=== PATIENT | female | born 1950 | race Caucasian/White ===

== ENCOUNTER 2016-11-22 19:48 | Emergency (ER) | payer OTHER, MEDICARE ==
[~2016-11-22] VITALS: Ht 182.9 cm; Wt 160.0 kg
[~2016-11-22 19:48] MED LIST: DICL1GEL28 TD; GABA-113 PO; HMLI7525 SC; HYDR-3419 PO; LEVO50TA PO; LIDOCAINE PATCH EXT; LISI-461 PO; MVC20 PO
[2016-11-22 19:55] VITALS: TEMP 36.6; Ht 182.9 cm; Wt 160.0 kg
[2016-11-22] MEDS ORDERED: CPR500HP PO (20:35)
[2016-11-22] MEDS ORDERED: LRS10 PO (20:37)
[2016-11-22] MEDS ORDERED: NAPR1TAB9 PO (20:37)
--- NOTE | 2016-11-22 20:42 | EMERGENCY ROOM VISIT NOTE ---
History Report prepared by David: Kari Baldwin Under the Supervision of: Dr. Neymar Ta M.D. First contact with patient: 20:12 Chief Complaint: SHOULDER PAIN Stated Complaint: PAIN L SHOULDER,SWOLLEN JOINTS History of Present Illness The patient is a 66 year old female who presents to the Emergency Room with complaints of intermittent left shoulder pain that has been worsening over the past 2 days. She was at her PCP's office last week for bilateral lower extremity swelling and redness. She was diagnosed with cellulitis and started on Cipro. She states that these symptoms have improved since taking the antibiotic. At that time she mentioned some left elbow pain to her PCP. Her PCP thought that it might be bursitis. The patient states that over the past couple of days her pain has worsened. It is in her left shoulder and radiating down into her left wrist. She reports that her arm gets hot and numb as well. She rates her pain as an 8/10 at its worst, but is not currently experiencing any pain. She has been taking Vicodin and Aleve for her pain. The patient denies any modifying factors. She denies any pain with movement. She denies rash and any significant cardiac history. Source of History: patient Onset: 2 days ago Position: shoulder (left) Symptom Intensity: 8/10 Timing: intermittent, worsening Modifying Factors (Worsening): other (none) Modifying Factors (Relieving): ibuprofen (Aleve), narcotics (Vicodin) Associated Symptoms: No rash Review of Systems See HPI for pertinent positives & negatives. A total of 10 systems reviewed and were otherwise negative. Past Medical & Surgical Medical Problems: (1) Back pain (2) Benign hypertension (3) Depression (4) Diabetes mellitus (5) Hyperlipidemia (6) Hypothyroidism (7) Morbid obesity Family History Heart disease Social History Smoking Status: Never Smoker Alcohol Use: none Marital Status: single Housing Status: lives with family Occupation Status: disabled Current/Historical Medications Scheduled Ciprofloxacin (Ciprofloxacin HCl), 1 TAB PO BID Gabapentin (Neurontin), 1,200 MG PO HS Gabapentin (Neurontin), 600 MG PO AFTERNOON Insulin Lispro 75/25 (Humalog Mix 75/25), 62 UNITS SC QAM Insulin Lispro 75/25 (Humalog Mix 75/25), 44 UNITS SC QPM Levothyroxine Sodium (Synthroid), 50 MCG PO QAM Lisinopril (Zestril), 10 MG PO QAM Lovastatin (Lovastatin), 20 MG PO QAM Scheduled PRN Baclofen (Baclofen), 10 MG PO TID PRN for Muscle Spasms Diclofenac Sod (Voltaren 1% Top Gel), 1 APPLN TD BID PRN for Pain Hydrocodon/Acetaminophen 5MG/300MG (Vicodin (5MG/300MG)), 1 TAB PO Q6 PRN Naproxen (Aleve), 220 MG PO DAILY PRN for PRN [Lidocaine Patch], 1 DOSE EXT DIRECTED PRN for Pain Allergies Coded Allergies: Cefuroxime (Verified Allergy, Mild, RASH, 09/26/16) Moxifloxacin (Verified Allergy, Mild, RASH, 09/26/16) Quinolones (Verified Allergy, Unknown, RASH, 09/26/16) Physical Exam Vital Signs Date Time Temp Pulse Resp B/P Pulse Ox O2 Delivery O2 Flow Rate FiO2 11/22/16 23:19 68 20 151/65 96 11/22/16 19:55 36.6 80 20 141/69 93 Room Air Physical Exam GENERAL: Patient is an obese 66 year old female. HEAD: Normocephalic atraumatic EYES: Ocular movements intact pupils equal and react to light OROPHARYNX mucous membranes are moist no exudates present no erythema or edema present NECK: Supple no nuchal rigidity CHEST: Good equal expansion LUNGS: Clear and equal to auscultation CARDIAC: Normal S1 and S2 ABDOMEN: Soft nontender no guarding BACK: No CVA tenderness EXTREMITIES: No pain upon palpation normal muscle strength in all groups no clubbing cyanosis or edema. Neurovascularly intact in left wrist, good ROM of left shoulder left elbow and left wrist. NEURO: Patient is following commands is answering questions appropriately. Alert and oriented x3 Cranial Nerves 2-12 grossly intact Medical Decision & Procedures ER Provider Diagnostic Interpretation: Radiology results as stated below per my review and radiologist interpretation: CHEST ONE VIEW PORTABLE CLINICAL HISTORY: Atypical chest pain COMPARISON STUDY: 02/16/2013 FINDINGS: The study is limited from a technical standpoint due to the patient's large body habitus. The heart is the upper limits of normal in size. There are equivocal perihilar interstitial opacities within the left lung. There is no significant pleural fluid.[ IMPRESSION: Technically limited study. Equivocal left perihilar interstitial opacities. A PA and lateral study is recommended in follow-up. Electronically signed by: Sylvester Glover M.D. 11/22/2016 10:14 PM Dictated Date/Time: 11/22/2016 10:13 PM ULTRASOUND VENOUS DOPPLER ULTRASOUND OF THE LEFT UPPER EXTREMITY CLINICAL HISTORY: Left arm pain COMPARISON STUDY: No previous studies for comparison. FINDINGS: No intraluminal thrombus was visualized. The internal jugular, subclavian, axillary, cephalic, brachial, basilic, radial, and ulnar veins were patent. IMPRESSION: No evidence of left upper extremity DVT. Electronically signed by: Sylvester Glover M.D. 11/22/2016 9:32 PM Dictated Date/Time: 11/22/2016 9:32 PM LEFT SHOULDER MIN 2 VIEWS ROUTINE CLINICAL HISTORY: Left shoulder pain COMPARISON: None. DISCUSSION: No acute fractures or subluxations are visualized. There are degenerative changes present within the left shoulder. There are equivocal left lung interstitial opacities. IMPRESSION: 1. No fractures or dislocations identified 2. Degenerative changes 3. Equivocal left perihilar interstitial opacities Electronically signed by: Sylvester Glover M.D. 11/22/2016 10:16 PM Dictated Date/Time: 11/22/2016 10:14 PM LEFT ELBOW MIN 3 VIEWS ROUTINE CLINICAL HISTORY: Left elbow pain COMPARISON: None. DISCUSSION: The lateral view is limited from a positioning standpoint. No fractures or dislocations are visualized. The fat pads are not displaced. IMPRESSION: No fractures or dislocations identified. No destructive lesions are evident. Electronically signed by: Syvlester Glover M.D. 11/22/2016 10:17 PM Dictated Date/Time: 11/22/2016 10:16 PM Laboratory Results 11/22/16 20:30 Red Blood Count 4.72, Mean Corpuscular Volume 87.7, Mean Corpuscular Hemoglobin 30.5, Mean Corpuscular Hemoglobin Concent 34.8, Mean Platelet Volume 11.2, Neutrophils (%) (Auto) 62.0, Lymphocytes (%) (Auto) 26.6, Monocytes (%) (Auto) 8.2, Eosinophils (%) (Auto) 2.5, Basophils (%) (Auto) 0.5, Neutrophils # (Auto) 5.13, Lymphocytes # (Auto) 2.20, Monocytes # (Auto) 0.68, Eosinophils # (Auto) 0.21, Basophils # (Auto) 0.04 11/22/16 20:30 Test 11/22/16 20:30 White Blood Count 8.28 K/uL (4.8-10.8) Red Blood Count 4.72 M/uL (4.2-5.4) Hemoglobin 14.4 g/dL (12.0-16.0) Hematocrit 41.4 % (37-47) Mean Corpuscular Volume 87.7 fL (80-100) Mean Corpuscular Hemoglobin 30.5 pg (25-34) Mean Corpuscular Hemoglobin Concent 34.8 g/dl (32-36) Platelet Count 244 K/uL (130-400) Mean Platelet Volume 11.2 fL (7.4-10.4) Neutrophils (%) (Auto) 62.0 % Lymphocytes (%) (Auto) 26.6 % Monocytes (%) (Auto) 8.2 % Eosinophils (%) (Auto) 2.5 % Basophils (%) (Auto) 0.5 % Neutrophils # (Auto) 5.13 K/uL (1.4-6.5) Lymphocytes # (Auto) 2.20 K/uL (1.2-3.4) Monocytes # (Auto) 0.68 K/uL (0.11-0.59) Eosinophils # (Auto) 0.21 K/uL (0-0.5) Basophils # (Auto) 0.04 K/uL (0-0.2) RDW Standard Deviation 41.5 fL (36.4-46.3) RDW Coefficient of Variation 12.9 % (11.5-14.5) Immature Granulocyte % (Auto) 0.2 % Immature Granulocyte # (Auto) 0.02 K/uL (0.00-0.02) Anion Gap 11.0 mmol/L (3-11) Est Creatinine Clear Calc Drug Dose 95.5 ml/min Estimated GFR () 70.4 Estimated GFR (Non- 60.8 BUN/Creatinine Ratio 20.9 (10-20) Calcium Level 9.3 mg/dl (8.5-10.1) Total Bilirubin 0.3 mg/dl (0.2-1) Direct Bilirubin 0.1 mg/dl (0-0.2) Aspartate Amino Transf (AST/SGOT) 14 U/L (15-37) Alanine Aminotransferase (ALT/SGPT) 23 U/L (12-78) Alkaline Phosphatase 85 U/L (45-117) Total Creatine Kinase 66 U/L (26-192) Creatine Kinase MB 1.0 ng/ml (0.5-3.6) Creatine Kinase MB Ratio 1.5 (0-3.0) Troponin I < 0.015 ng/ml (0-0.045) Total Protein 6.9 gm/dl (6.4-8.2) Albumin 3.6 gm/dl (3.4-5.0) Lipase 105 U/L (73-393) Labs reviewed by ED physician. ECG Indication: back/shoulder pain Rate (beats per minute): 69 Rhythm: normal sinus Findings: no acute ischemic change, no ectopy ED Course 2011: Past medical records reviewed. The patient was evaluated in room B7. A complete history and physical examination was performed. 2249: I reassessed the patient at this time. She is feeling better and resting comfortably. I discussed the results and treatment plan with the patient. I answered all pertaining questions that she had. She expressed understanding and verbalized agreement. The patient will be discharged home. Medical Decision Differential diagnosis: Etiologies such as fracture, dislocation, neurovascular compromise, compartment syndrome, soft tissue injury, as well as others were entertained. This is a 66-year-old female who presents emergency department complaining of 3 days of left shoulder pain. Patient reports that she is not currently having any pain. As the pain has been ongoing for the past 3 days I would expect her to have an elevated troponin if this were a cardiac ischemia. As such she does not. In addition the patient also has a normal x-ray of her chest as well as shoulder. Ultrasound does not show any evidence of a blood clot. The patient refused pain medication in the emergency department. She is also complaining of leg swelling that started after the patient was placed on an antibiotic for cellulitis. I believe the patient can be placed in a compression stockings for her leg and have follow-up with her primary care physician. Patient was in agreement with treatment plan. Impression Primary Impression: Shoulder pain, left Scribe Attestation The scribe's documentation has been prepared under my direction and personally reviewed by me in its entirety. I confirm that the note above accurately reflects all work, treatment, procedures, and medical decision making performed by me. Departure Information Dispostion Home / Self-Care Referrals Iesha Tran (PCP) Abdirizak Handley, DO Forms HOME CARE DOCUMENTATION FORM, IMPORTANT VISIT INFORMATION Patient Instructions A Signature Page, ED Shoulder Pain [facility], My [facility] Additional Instructions You have been examined and treated today on an emergency basis only. This is not a substitute for, or an effort to provide, complete comprehensive medical care. It is impossible to recognize and treat all injuries or illnesses in a single emergency department visit. It is therefore important that you follow up closely with DR Tran. Call as soon as possible for an appointment. Thank you for your time and consideration. I look forward to speaking with you again soon. Please don't hesitate to call us if you have any questions.
[2016-11-22 20:50] LABS: BASO % 0.5 %; BASO ABS # 0.04 K/uL (0-0.2); COMPLETE YES; EOS % 2.5 %; HEMATOCRIT 41.4 % (37-47); IG% 0.2 %; LYMPH % 26.6 %; MEAN CELL VOLUME 87.7 fL (80-100); MEAN CORPUSCULAR HEMOGLOBIN 30.5 pg (25-34); MEAN CORPUSCULAR HGB CONC 34.8 g/dl (32-36); MEAN PLATELET VOLUME 11.2 fL (7.4-10.4); MONO % 8.2 %; PLATELET COUNT 244 K/uL (130-400); RED BLOOD COUNT 4.72 M/uL (4.2-5.4); WHITE BLOOD COUNT 8.28 K/uL (4.8-10.8)
[2016-11-22 21:09] LABS: ALT/SGPT 23 U/L (12-78); BLOOD UREA NITROGEN 20 mg/dl (7-18); BUN/CREATININE RATIO 20.9 (10-20); CALCIUM 9.3 mg/dl (8.5-10.1); CARBON DIOXIDE 25 mmol/L (21-32); CHLORIDE 107 mmol/L (98-107); CREATININE 0.96 mg/dl (0.60-1.20); GLUCOSE 175 mg/dl (70-99); POTASSIUM 4.4 mmol/L (3.5-5.1); SODIUM 143 mmol/L (136-145)
[2016-11-22 21:14] LABS: ALKALINE PHOSPHATASE 85 U/L (45-117); AST/SGOT 14 U/L (15-37); CKMB/CK RATIO 1.5 (0-3.0)
--- NOTE | 2016-11-22 21:34 | DIAGNOSTIC IMAGING REPORT ---
ULTRASOUND VENOUS DOPPLER ULTRASOUND OF THE LEFT UPPER EXTREMITY CLINICAL HISTORY: Left arm pain COMPARISON STUDY: No previous studies for comparison. FINDINGS: No intraluminal thrombus was visualized. The internal jugular, subclavian, axillary, cephalic, brachial, basilic, radial, and ulnar veins were patent. IMPRESSION: No evidence of left upper extremity DVT. Electronically signed by: Sylvester Glover M.D. 11/22/2016 9:32 PM Dictated Date/Time: 11/22/2016 9:32 PM
--- NOTE | 2016-11-22 22:16 | DIAGNOSTIC IMAGING REPORT ---
CHEST ONE VIEW PORTABLE CLINICAL HISTORY: Atypical chest pain COMPARISON STUDY: 02/16/2013 FINDINGS: The study is limited from a technical standpoint due to the patient's large body habitus. The heart is the upper limits of normal in size. There are equivocal perihilar interstitial opacities within the left lung. There is no significant pleural fluid.[ IMPRESSION: Technically limited study. Equivocal left perihilar interstitial opacities. A PA and lateral study is recommended in follow-up. Electronically signed by: Sylvester Glover M.D. 11/22/2016 10:14 PM Dictated Date/Time: 11/22/2016 10:13 PM
--- NOTE | 2016-11-22 22:18 | DIAGNOSTIC IMAGING REPORT ---
LEFT SHOULDER MIN 2 VIEWS ROUTINE CLINICAL HISTORY: Left shoulder pain COMPARISON: None. DISCUSSION: No acute fractures or subluxations are visualized. There are degenerative changes present within the left shoulder. There are equivocal left lung interstitial opacities. IMPRESSION: 1. No fractures or dislocations identified 2. Degenerative changes 3. Equivocal left perihilar interstitial opacities Electronically signed by: Sylvester Glover M.D. 11/22/2016 10:16 PM Dictated Date/Time: 11/22/2016 10:14 PM
--- NOTE | 2016-11-22 22:19 | DIAGNOSTIC IMAGING REPORT ---
LEFT ELBOW MIN 3 VIEWS ROUTINE CLINICAL HISTORY: Left elbow pain COMPARISON: None. DISCUSSION: The lateral view is limited from a positioning standpoint. No fractures or dislocations are visualized. The fat pads are not displaced. IMPRESSION: No fractures or dislocations identified. No destructive lesions are evident. Electronically signed by: Sylvester Glover M.D. 11/22/2016 10:17 PM Dictated Date/Time: 11/22/2016 10:16 PM
[2016-11-22 23:19] VITALS: BP 151/65; PULSE 68; O2SAT 96
[2017-01-18] MEDS ORDERED: FEXO1TAB49 PO (10:34)
[2017-02-07] MEDS ORDERED: HYDR-5688 PO (07:26)
== END 2016-11-22 23:20 | disposition home or self-care (01) ==
LOC: C.EDB 19:50
DX: M25.512 Pain in left shoulder (principal); I10 Essential (primary) hypertension; E78.5 Hyperlipidemia, unspecified; E11.9 Type 2 diabetes mellitus without complications; E03.9 Hypothyroidism, unspecified; F32.9 Major depressive disorder, single episode, unspecified; Z79.4 Long term (current) use of insulin; Z79.899 Other long term (current) drug therapy; Z88.8 Allergy status to other drugs, medicaments and biological substances; Z82.49 Family history of ischemic heart disease and other diseases of the circulatory system; M79.602 Pain in left arm

== ENCOUNTER → 2017-01-31 | Day surgery (SDC) | payer OTHER, MEDICARE ==
[2017-01-18 10:35] VITALS: Ht 182.9 cm; Wt 171.8 kg
[~2017-01-31] VITALS: Ht 182.9 cm; Wt 171.8 kg
[~2017-01-31] MED LIST changes: +FEXO1TAB49 PO; +HYDR-5688 PO; +LIDOCAINE HCL 1% MPF 5 ML VIAL ONE; -LIDOCAINE PATCH EXT; +LRS10 PO; +NAPR1TAB9 PO; +SODIUM CHLORIDE 0.9% INJ 10 ML VIAL ONE
--- NOTE | 2017-01-31 13:16 | History & Physical Bridge - SC ---
H&P Re-Evaluation Bridge Note: I have examined the patient, reviewed the History & Physical and in the interval since the performance of the History & Physical I have noted the following changes of clinical significance: No changes noted
[2017-01-31 13:50] VITALS: TEMP 36.7
--- NOTE | 2017-01-31 13:54 | Discharge Instructions ---
Discharge Instructions Date of Service Jan 31, 2017. Visit Reason for Visit: Lumbar Radiculopathy Discharge Discharge Diagnosis / Problem: left leg pain Discharge Goals Goal(s): Decrease discomfort, Improve function Medications Stopped Medications Name(s): Dora haile 1 week Activity Recommendations Activity Limitations: resume your previous activity Anesthesia . Post Anesthesia Instructions: If you have had General Anesthesia or IV Sedation: * Do not drive today. * Resume driving when surgeon permits. * Do not make important decisions or sign legal documents today. * Call surgeon for: 1. Temperature elevations greater than 101 degrees F. 2. Uncontrollable pain. 3. Excessive bleeding. 4. Persistent nausea and vomiting. 5. Medication intolerance (nausea, vomiting or rash). * For nausea and vomiting use only clear liquids such as: tea, soda, bouillon until nausea subsides, then gradually increase diet as tolerated. * If you have any concerns or questions, call your surgeon's office. If physician is unavailable and it is an emergency, call 911 or go to the nearest emergency room. . Diet Recommendations Recommended Home Diet: resume previous diet Procedures Procedures Performed: CAUDAL EPIDURAL STEROID INJECTION Pending Studies Studies pending at discharge: no Medical Emergencies . Who to Call and When: Medical Emergencies: If at any time you feel your situation is an emergency, please call 911 immediately. . Non-Emergent Contact Non-Emergency issues call your: Specialist . . "Provider Documentation" section prepared by Damián Rankin.
[2017-01-31 14:03] VITALS: BP 128/73; PULSE 84; O2SAT 95
--- NOTE | 2017-01-31 14:52 | OPERATIVE REPORT ---
DATE OF OPERATION: 01/31/2017 PREOPERATIVE DIAGNOSES: Lumbar spinal stenosis with left lower extremity radiculopathy. History of lumbar surgeries. POSTOPERATIVE DIAGNOSES: Same. PROCEDURE: Caudal epidural steroid injection under fluoroscopic guidance. INDICATIONS: The patient is a 66-year-old white female that presents today for caudal epidural injection. She receives them about every 4 months. They are very effective in helping control her pain and improving her function. She presents today for an injection to provide her with relief of radicular complaints. PHYSICAL EXAMINATION: Pleasant female seated comfortably. She has some mild tenderness to palpation of her lower lumbar spine region. She has no focal weakness of lower extremities and intact sensation. Negative seated straight leg raises. CONSENT: Verbal and written consent were obtained from patient. Risks and benefits were reviewed. Risks include but are not limited to epidural abscess and allergic reaction. The patient wishes to proceed. DESCRIPTION OF PROCEDURE: The patient was taken back into special procedures room of the [facility] where she was maintained in prone position. Backside was cleansed with Betadine x3 and a dry sterile dressing was applied. Fluoroscope was used to identify the sacral hiatus from a lateral view. She then underwent anesthetization with 4 mL of lidocaine 1% with a 25 gauge 1.5-inch needle. A 22 gauge 6-inch Tuohy needle was then directed under fluoroscopic guidance into the canal and advanced within 1/2 an inch and 3/4 of an inch. She then underwent injection after negative aspiration of 40 mg of Depo-Medrol and 5 mL of preservative free sodium chloride. Injection was well tolerated. DISPOSITION: 1. The patient is taken out into the discharge recovery area where she will be discharged home once discharge criteria have been met. 2. Follow up in the [facility] office in 2-4 weeks. I attest to the content of the Intraoperative Record and any orders documented therein. Any exceptio ns are noted below.
== END | disposition home or self-care (01) ==
LOC: X.SURG 12:11
PROVIDERS: ATTEND Physical Medicine & Rehabilitation
DX: M48.06 Spinal stenosis, lumbar region (principal); M54.16 Radiculopathy, lumbar region

== ENCOUNTER → 2017-02-07 | Day surgery (SDC) | payer OTHER, MEDICARE ==
[2017-01-10 12:58] VITALS: Ht 182.9 cm; Wt 171.9 kg
--- NOTE | 2017-01-10 13:28 | PAT Medication Instructions ---
Service Date Jan 10, 2017. Current Home Medication List Baclofen (Baclofen), 10 MG PO TID PRN for Muscle Spasms Diclofenac Sod (Voltaren 1% Top Gel), 1 APPLN TD BID PRN for Pain Gabapentin (Neurontin), 1,200 MG PO HS Gabapentin (Neurontin), 600 MG PO AFTERNOON Hydrocodon/Acetaminophen 5MG/300MG (Vicodin (5MG/300MG)), 1 TAB PO Q6 PRN Insulin Lispro 75/25 (Humalog Mix 75/25), 64 UNITS SC QAM Insulin Lispro 75/25 (Humalog Mix 75/25), 42 UNITS SC QPM Levothyroxine Sodium (Synthroid), 50 MCG PO QAM Lisinopril (Zestril), 10 MG PO QAM Lovastatin (Lovastatin), 20 MG PO QAM Naproxen (Aleve), 220 MG PO DAILY PRN for PRN Medication Instructions For Your Scheduled Surgery Naproxen (Aleve), 220 MG PO DAILY PRN for PRN (per surgeon for instructions) - Hold the following medications 24 hours prior to surgery: Diclofenac Sod (Voltaren 1% Top Gel), 1 APPLN TD BID PRN for Pain - Hold the following medications the morning of surgery: Lisinopril (Zestril), 10 MG PO QAM Baclofen (Baclofen), 10 MG PO TID PRN for Muscle Spasms - Take the following medications the morning of surgery with a sip of water: Lovastatin (Lovastatin), 20 MG PO QAM Levothyroxine Sodium (Synthroid), 50 MCG PO QAM Hydrocodon/Acetaminophen 5MG/300MG (Vicodin (5MG/300MG)), 1 TAB PO Q6 PRN (okay to take up to 4 hours prior to surgery if needed) - Take the following medications as scheduled the night before surgery: Insulin Lispro 75/25 (Humalog Mix 75/25), 42 UNITS SC QPM Gabapentin (Neurontin), 1,200 MG PO HS Gabapentin (Neurontin), 600 MG PO AFTERNOON Baclofen (Baclofen), 10 MG PO TID PRN for Muscle Spasms Hydrocodon/Acetaminophen 5MG/300MG (Vicodin (5MG/300MG)), 1 TAB PO Q6 PRN - For Insulin Dependent Diabetic patients: Test blood sugar A.M. of surgery. - If blood sugar greater than 150, take half of your regular dose of: Insulin Lispro 75/25 (Humalog Mix 75/25) take 32 units - If blood sugar less than 150, do not take any: Insulin Lispro 75/25 If you have any questions please call us at [phone] (Yesica Stein PA-C ) or [phone] or [phone]
[2017-01-10 14:20] LABS: BASO % 0.3 %; BASO ABS # 0.02 K/uL (0-0.2); COMPLETE YES; EOS % 1.9 %; HEMATOCRIT 40.3 % (37-47); LYMPH ABS # 1.58 K/uL (1.2-3.4); MEAN CELL VOLUME 89.8 fL (80-100); MEAN CORPUSCULAR HEMOGLOBIN 30.3 pg (25-34); MEAN CORPUSCULAR HGB CONC 33.7 g/dl (32-36); MEAN PLATELET VOLUME 11.2 fL (7.4-10.4); MONO % 7.1 %; NEUT % 68.7 %; PLATELET COUNT 217 K/uL (130-400); RED BLOOD COUNT 4.49 M/uL (4.2-5.4); WHITE BLOOD COUNT 7.18 K/uL (4.8-10.8)
[2017-01-10 14:45] LABS: BUN/CREATININE RATIO 16.5 (10-20); CALCIUM 8.9 mg/dl (8.5-10.1); CREATININE 1.1 mg/dl (0.60-1.20); POTASSIUM 4.6 mmol/L (3.5-5.1)
[~2017-02-07] VITALS: Ht 182.9 cm; Wt 171.9 kg
[~2017-02-07] MED LIST changes: +ATROPINE SULFATE 0.1 MG/ML 5ML SYR IV PRN; +CEFAZOLIN 3000 MG/65 ML D5W IV SCH; +CLINDAMYCIN 900MG IV SCH; +DEXAMETHASONE SOD INJ 4 MG/ML VIAL ONE; +EpHEDrine SULFATE INJ 50 MG/ML AMP IV PRN; +FENTANYL CITRATE INJ 50 MCG/1 ML 2 ML VIAL IV PRN; +FENTANYL CITRATE INJ 50 MCG/1 ML 2 ML VIAL ONE; +HYDROCODONE/ACETAMOPHEN 5/325MG TAB PO PRN; +LACTATED RINGER'S 1000ML 1,000 ML IV SCH; -LIDOCAINE HCL 1% MPF 5 ML VIAL ONE; +LIDOCAINE HCL 2% 2 ML VIAL (20MG/ML) ONE; +LIDOCAINE HCL 2% LOCAL 20 ML VIAL ONE; +MIDAZOLAM HCL 1 MG/ML 2ML VIAL ONE; +ONDANSETRON INJ 2 MG/ML 2 ML VIAL IV PRN; +ONDANSETRON INJ 2 MG/ML 2 ML VIAL ONE; +PROPOFOL IV EMULSION 10 MG/ML 20 ML VIAL IV ONE; +SODIUM CHLORIDE 0.9% 1000ML 1,000 ML IV SCH; -SODIUM CHLORIDE 0.9% INJ 10 ML VIAL ONE
--- NOTE | 2017-02-07 07:23 | Anesthesia Progress Nt - [facility] ---
Anesthesia Post Op Note Date & Time Feb 07, 2017 at 07:24 Vital Signs Pain Intensity: 0 Vital Signs Past 12 Hours Date Time Temp Pulse Resp B/P Pulse Ox O2 Delivery O2 Flow Rate FiO2 02/07/17 06:41 36.6 70 18 166/84 95 Room Air Notes Mental Status: alert / awake / arousable, participated in evaluation Pt Amnestic to Procedure: Yes Nausea / Vomiting: adequately controlled Pain: adequately controlled Airway Patency, RR, SpO2: stable & adequate BP & HR: stable & adequate Hydration State: stable & adequate Anesthetic Complications: no major complications apparent
--- NOTE | 2017-02-07 07:26 | [facility] Post Operative Brief Note ---
Immediate Operative Summary Operative Date Feb 07, 2017. Pre-Operative Diagnosis Left Carpal Tunnel Syndrome Post-Operative Diagnosis Same Procedure(s) Performed Left Carpal Tunnel Release Surgeon Dr. Handley Milk Pasteurizer Surgeon(s) Pam Chery PA-C Estimated Blood Loss 0 mL Findings as above Specimens None Complication(s) None Disposition Recovery Room / PACU
--- NOTE | 2017-02-07 07:28 | Discharge Instructions-SurgCtr ---
Discharge Instructions Date of Service Feb 07, 2017. Visit Reason for Visit: Left Carpal Tunnel Syndrome Discharge Discharge Diagnosis / Problem: SAME ABOVE Discharge Goals Goal(s): Decrease discomfort, Improve function Medications Stopped Medications Name(s): le boss voltareprem gel Restart Stopped Medication(s): MARCH RESTART 02/07/2017 Activity Recommendations Activity Limitations: as noted below Lifting Limitations: until after follow-up appointment Anesthesia . Post Anesthesia Instructions: If you have had General Anesthesia or IV Sedation: * Do not drive today. * Resume driving when surgeon permits. * Do not make important decisions or sign legal documents today. * Call surgeon for: 1. Temperature elevations greater than 101 degrees F. 2. Uncontrollable pain. 3. Excessive bleeding. 4. Persistent nausea and vomiting. 5. Medication intolerance (nausea, vomiting or rash). * For nausea and vomiting use only clear liquids such as: tea, soda, bouillon until nausea subsides, then gradually increase diet as tolerated. * If you have any concerns or questions, call your surgeon's office. If physician is unavailable and it is an emergency, call 911 or go to the nearest emergency room. . Instructions / Follow-Up Instructions / Follow-Up MEDICATIONS: * Resume previous medications unless instructed otherwise by your surgeon. * Always take pain medication on a full stomach or with food to avoid upset stomach. * Do not drink alcohol or drive while taking narcotics. * Ibuprofen or Tylenol may be taken if narcotic not needed. SPECIAL CARE INSTRUCTIONS: __ None _X_ Keep extremity elevated and iced x 48 hours; apply ice 20-30 minutes 8-10 times/day. May remove at night. __ Sling __24 hrs/day __ Remove at night __ Shoulder Immobilizer __ 24 hrs/day __ Remove at night _X_ Dressing __ Maintain until seen in office, may shower with plastic over site _X_ Remove dressings in 5 DAYS. MAY SHOWER SOONER IF COVERED WITH PLASTIC BAG _X_ Cover incisions with band-aids after showering __ Do not remove steri-strips Call physician if chills or temperature rises above 102 degrees or pain unrelieved by prescribed pain medications at . . Diet Recommendations Home Diet: no limitations Fluid Restriction: None Procedures Procedures Performed: Left Carpal Tunnel Release Pending Studies Studies pending at discharge: no Work Instructions Return To Work: after follow-up Lifting Limitations: no more than 10 pounds Medical Emergencies . Who to Call and When: Medical Emergencies: If at any time you feel your situation is an emergency, please call 911 immediately. . Non-Emergent Contact Non-Emergency issues call your: Primary Care Provider Call Non-Emergent contact if: you have a fever, temperature is above 101.5 . . "Provider Documentation" section prepared by Bruno Chery.
[2017-02-07 07:29] VITALS: TEMP 36.4
--- NOTE | 2017-02-07 07:34 | OPERATIVE REPORT ---
DATE OF OPERATION: 02/07/2017 PREOPERATIVE DIAGNOSIS: Carpal tunnel syndrome of the left wrist. POSTOPERATIVE DIAGNOSIS: Same. PROCEDURE: Open left carpal tunnel release. SURGEON: Dr. Abdirizak Handley. [employer] JOINTER: Aman Chery PA-C, whose assistance was necessary for positioning the arm and helping with instrumentation. ANESTHESIA: Sedation and local. COMPLICATIONS: None. CONDITION: Stable to PACU. INDICATIONS: Consuelo is a pleasant 66-year-old female who presented to my office with complaints of paresthesias in her left hand. EMG study showed carpal tunnel syndrome of the left wrist. After failing conservative treatment, she elected to undergo open carpal tunnel release. On 02/07/2017 she arrived at [facility] for the above procedure. She was seen in the preoperative holding area and the operative extremity was identified and signed. She was given a preoperative antibiotic, taken back to the operating room and kept on the litter. She was given basic sedation. The left wrist was then prepped and draped in sterile fashion. Time-out was done and the patient and operative extremity was properly identified. The surgical site was anesthetized with 5 mL of lidocaine. A longitudinal incision was made directly over the transverse carpal ligament. Dissection was taken down through the palmar fascia with care not to disrupt the motor branch of the median nerve. The transverse carpal ligament was then released with a knife and tenotomy scissors. Complete release was checked both proximally and distally. The wound was then irrigated and closed with 4-0 nylon suture in a mattress fashion. She was then placed in a soft dressing and taken to the postanesthesia care unit in stable condition. She tolerated the procedure well. I attest to the content of the Intraoperative Record and any orders documented therein. Any exceptio ns are noted below.
[2017-02-07 07:47] VITALS: BP 109/64; PULSE 69; O2SAT 95
== END | disposition home or self-care (01) ==
LOC: X.SURG 06:07
PROVIDERS: ATTEND Orthopaedic Surgery
DX: G56.02 Carpal tunnel syndrome, left upper limb (principal); I10 Essential (primary) hypertension; E66.01 Morbid (severe) obesity due to excess calories; Z68.43 Body mass index [BMI] 50.0-59.9, adult; Z82.49 Family history of ischemic heart disease and other diseases of the circulatory system; Z83.3 Family history of diabetes mellitus; Z79.899 Other long term (current) drug therapy

== ENCOUNTER → 2017-05-17 | Outpatient (CLI) | payer OTHER, MEDICARE ==
[~2017-05-17] MED LIST changes: -ATROPINE SULFATE 0.1 MG/ML 5ML SYR IV PRN; -CEFAZOLIN 3000 MG/65 ML D5W IV SCH; -CLINDAMYCIN 900MG IV SCH; -DEXAMETHASONE SOD INJ 4 MG/ML VIAL ONE; -DICL1GEL28 TD; -EpHEDrine SULFATE INJ 50 MG/ML AMP IV PRN; -FENTANYL CITRATE INJ 50 MCG/1 ML 2 ML VIAL IV PRN; -FENTANYL CITRATE INJ 50 MCG/1 ML 2 ML VIAL ONE; -HYDROCODONE/ACETAMOPHEN 5/325MG TAB PO PRN; -LACTATED RINGER'S 1000ML 1,000 ML IV SCH; -LIDOCAINE HCL 2% 2 ML VIAL (20MG/ML) ONE; -LIDOCAINE HCL 2% LOCAL 20 ML VIAL ONE; -MIDAZOLAM HCL 1 MG/ML 2ML VIAL ONE; -ONDANSETRON INJ 2 MG/ML 2 ML VIAL IV PRN; -ONDANSETRON INJ 2 MG/ML 2 ML VIAL ONE; -PROPOFOL IV EMULSION 10 MG/ML 20 ML VIAL IV ONE; -SODIUM CHLORIDE 0.9% 1000ML 1,000 ML IV SCH
--- NOTE | 2017-05-17 12:52 | DIAGNOSTIC IMAGING REPORT ---
LEFT ARM ULTRASOUND CLINICAL HISTORY: Left arm lump and swelling. COMPARISON STUDY: None. FINDINGS: Within the mid left upper arm there is a 3.6 x 3.5 x 1.4 cm subcutaneous slightly hyperechoic circumscribed lesion. This favors a lipoma. No fluid collections identified. IMPRESSION: A 3.6 x 3.5 x 1.4 cm slightly hyperechoic subcutaneous lesion within the left upper arm. This likely represents a lipoma. However, if this is increasing in size or is painful then surgical resection should be considered. Electronically signed by: Edamr Lovett M.D. 05/17/2017 12:51 PM Dictated Date/Time: 05/17/2017 12:50 PM
== END | disposition home or self-care (01) ==
LOC: C.ULTR 10:44
PROVIDERS: ATTEND Nurse Practitioner Family
DX: R22.32 Localized swelling, mass and lump, left upper limb (principal)

== ENCOUNTER → 2017-06-13 | Day surgery (SDC) | payer OTHER, MEDICARE ==
[2017-05-27 13:55] VITALS: Ht 182.9 cm; Wt 171.8 kg
[~2017-06-13] VITALS: Ht 182.9 cm; Wt 171.8 kg
[~2017-06-13] MED LIST changes: -HYDR-5688 PO; +LIDOCAINE HCL 1% MPF 5 ML VIAL ONE; +SODIUM CHLORIDE 0.9% INJ 10 ML VIAL ONE
[2017-06-13 13:08] VITALS: TEMP 36.7
--- NOTE | 2017-06-13 13:14 | Discharge Instructions ---
Discharge Instructions Date of Service Jun 13, 2017. Visit Reason for Visit: Lumbar Radiculopathy Discharge Discharge Diagnosis / Problem: leg pain Discharge Goals Goal(s): Decrease discomfort, Improve function Medications Stopped Medications Name(s): alepapito stopped x 1 week. Activity Recommendations Activity Limitations: resume your previous activity Anesthesia . Post Anesthesia Instructions: If you have had General Anesthesia or IV Sedation: * Do not drive today. * Resume driving when surgeon permits. * Do not make important decisions or sign legal documents today. * Call surgeon for: 1. Temperature elevations greater than 101 degrees F. 2. Uncontrollable pain. 3. Excessive bleeding. 4. Persistent nausea and vomiting. 5. Medication intolerance (nausea, vomiting or rash). * For nausea and vomiting use only clear liquids such as: tea, soda, bouillon until nausea subsides, then gradually increase diet as tolerated. * If you have any concerns or questions, call your surgeon's office. If physician is unavailable and it is an emergency, call 911 or go to the nearest emergency room. . Diet Recommendations Recommended Home Diet: resume previous diet Procedures Procedures Performed: CAUDAL EPIDURAL STERIOD INJECTION Pending Studies Studies pending at discharge: no Medical Emergencies . Who to Call and When: Medical Emergencies: If at any time you feel your situation is an emergency, please call 911 immediately. . Non-Emergent Contact Non-Emergency issues call your: Specialist . . "Provider Documentation" section prepared by Damián Rankin. .
[2017-06-13 13:25] VITALS: BP 121/71; PULSE 67; O2SAT 94
--- NOTE | 2017-06-13 14:03 | OPERATIVE REPORT ---
DATE OF OPERATION: 06/13/2017 PREOPERATIVE DIAGNOSIS: Lumbar spine stenosis. POSTOPERATIVE DIAGNOSIS: Same. PROCEDURE: Caudal epidural steroid injection. INDICATIONS FOR PROCEDURE: The patient is a 67-year-old white female who received a caudal injections for lumbar radiculopathy secondary to lumbar spinal stenosis. She does very well for a number of months. Last one was received in January. She reports that just recently, the pain has been returning and is problematic to her and she presents today for an injection. PHYSICAL EXAMINATION: Pleasant female seated comfortably. She is without any focal weakness of her lower extremities. She has intact sensation. Negative seated straight leg raises. CONSENT: Verbal and written consent was obtained from the patient. Risks and benefits were reviewed. Risks include, but are not limited to epidural abscess and allergic reaction. The patient wishes to proceed. DESCRIPTION OF PROCEDURE: The patient was taken back to the special procedures room of the [facility]. She was maintained in a prone position. Backside was cleansed with Betadine x3 and a dry sterile dressing was applied. Fluoroscope was used to identify the sacral hiatus and overlying skin was anesthetized with 4 mL of lidocaine 1% with a 25-gauge 1-1/2 inch needle. A 25-gauge 3-1/2 inch needle was then directed under fluoroscopic guidance into the canal. It was advanced under lateral fluoroscopic guidance. She then underwent injection after negative aspiration of 40 mg of Depo-Medrol and 4 mL of preservative free sodium chloride. Injection was well tolerated. DISPOSITION: 1. The patient is taken out into the discharge recovery area, where she will be discharged home once discharge criteria have been met. 2. Follow up in the [facility] office in 2-4 weeks. I attest to the content of the Intraoperative Record and any orders documented therein. Any exception s are noted below.
== END | disposition home or self-care (01) ==
LOC: X.SURG 11:52
PROVIDERS: ATTEND Physical Medicine & Rehabilitation
DX: M48.06 Spinal stenosis, lumbar region (principal); M54.16 Radiculopathy, lumbar region

== ENCOUNTER → 2017-10-24 | Day surgery (SDC) | payer OTHER, MEDICARE ==
[2017-09-26 14:02] VITALS: Ht 182.9 cm; Wt 171.8 kg
[~2017-10-24] VITALS: Ht 182.9 cm; Wt 171.8 kg
[2017-10-24 13:27] VITALS: BP 133/70; PULSE 87; O2SAT 96
--- NOTE | 2017-10-24 13:32 | Discharge Instructions ---
Discharge Instructions Date of Service Oct 24, 2017. Visit Reason for Visit: Lumbar Radiculopathy Discharge Discharge Diagnosis / Problem: left leg pain Discharge Goals Goal(s): Decrease discomfort, Improve function Activity Recommendations Activity Limitations: resume your previous activity Anesthesia . Post Anesthesia Instructions: If you have had General Anesthesia or IV Sedation: * Do not drive today. * Resume driving when surgeon permits. * Do not make important decisions or sign legal documents today. * Call surgeon for: 1. Temperature elevations greater than 101 degrees F. 2. Uncontrollable pain. 3. Excessive bleeding. 4. Persistent nausea and vomiting. 5. Medication intolerance (nausea, vomiting or rash). * For nausea and vomiting use only clear liquids such as: tea, soda, bouillon until nausea subsides, then gradually increase diet as tolerated. * If you have any concerns or questions, call your surgeon's office. If physician is unavailable and it is an emergency, call 911 or go to the nearest emergency room. . Diet Recommendations Recommended Home Diet: resume previous diet Procedures Procedures Performed: CAUDAL EPIDURAL STEROID INJECTION Pending Studies Studies pending at discharge: no Medical Emergencies . Who to Call and When: Medical Emergencies: If at any time you feel your situation is an emergency, please call 911 immediately. . Non-Emergent Contact Non-Emergency issues call your: Specialist . . "Provider Documentation" section prepared by Damián Rankin. .
--- NOTE | 2017-10-24 13:51 | OPERATIVE REPORT ---
DATE OF OPERATION: 10/24/2017 PREOPERATIVE DIAGNOSIS: Lumbar spinal stenosis with left lower extremity radiculopathy, chronic. POSTOPERATIVE DIAGNOSIS: Same. PROCEDURE: Caudal epidural steroid injection under fluoroscopic guidance. INDICATIONS: The patient is a 67-year-old female who received caudal epidural injections every 4 months with great relief. The last one she received was in late May and it helped her up until September. She presents today for another caudal epidural to provide her with relief of left leg pain. PHYSICAL EXAMINATION: Pleasant female seated comfortably. She is without any focal weakness. Decreased subjective sensation throughout the left leg in the L4-L5 dermatome with negative seated straight leg raises. CONSENT: The risks and benefits were reviewed with the patient. They include but are not limited to abscess and allergic reaction. She wishes to proceed. PROCEDURE: The patient was taken back to the special procedures room of [facility]. She was maintained in a prone position. Backside was cleansed with Betadine x3 and a dry sterile dressing was applied. Fluoroscope was used to identify the sacral hiatus. Overlying skin was anesthetized with 4 mL of lidocaine 1% with a 25 gauge 1.5-inch needle. A 22 gauge 5 inch spinal needle was then directed into the sacral canal. It was able to be advanced in about 3/4 to an inch and then met resistance. She then underwent injection after negative aspiration of 40 mg of Depo-Medrol and 4 mL of preservative free sodium chloride. Injection was well tolerated. DISPOSITION: 1. The patient is taken out into the discharge recovery area where she will be discharged home once discharge criteria have been met. 2. Follow up in the [facility] office in 4 weeks' time. I attest to the content of the Intraoperative Record and any orders documented therein. Any exception s are noted below.
== END | disposition home or self-care (01) ==
LOC: X.SURG 11:58
PROVIDERS: ATTEND Physical Medicine & Rehabilitation
DX: M48.061 Spinal stenosis, lumbar region without neurogenic claudication (principal); M54.10 Radiculopathy, site unspecified; B02.9 Zoster without complications

== ENCOUNTER → 2018-02-27 | Day surgery (SDC) | payer OTHER, MEDICARE ==
[2018-02-06 13:03] VITALS: Ht 182.9 cm; Wt 171.8 kg
[~2018-02-27] VITALS: Ht 182.9 cm; Wt 171.8 kg
[~2018-02-27] MED LIST changes: -LRS10 PO; +PRED1SUS3 OPL
--- NOTE | 2018-02-27 13:22 | [facility] Post Operative Brief Note ---
Immediate Operative Summary Operative Date Feb 27, 2018. Pre-Operative Diagnosis 1. Lumbar spinal stenosis with left lower extremity chronic radiculopathy. 2. Shingles Post-Operative Diagnosis Same Procedure(s) Performed Caudal Epidural Steroid Injection Surgeon Dr. Keke Rankin [employer] Truck [employer] Surgeon(s) None Estimated Blood Loss 0 Findings Consistent with Post-Op Diagnosis Specimens NA Drains None Anesthesia Type Local Complication(s) none Disposition Disposition:
--- NOTE | 2018-02-27 13:23 | Discharge Instructions ---
Discharge Instructions Date of Service Feb 27, 2018. Visit Reason for Visit: Lumbar Radiculopathy Discharge Discharge Diagnosis / Problem: leg pain Discharge Goals Goal(s): Decrease discomfort, Improve function Activity Recommendations Activity Limitations: resume your previous activity Anesthesia . Post Anesthesia Instructions: If you have had General Anesthesia or IV Sedation: * Do not drive today. * Resume driving when surgeon permits. * Do not make important decisions or sign legal documents today. * Call surgeon for: 1. Temperature elevations greater than 101 degrees F. 2. Uncontrollable pain. 3. Excessive bleeding. 4. Persistent nausea and vomiting. 5. Medication intolerance (nausea, vomiting or rash). * For nausea and vomiting use only clear liquids such as: tea, soda, bouillon until nausea subsides, then gradually increase diet as tolerated. * If you have any concerns or questions, call your surgeon's office. If physician is unavailable and it is an emergency, call 911 or go to the nearest emergency room. . Diet Recommendations Recommended Home Diet: resume previous diet Procedures Procedures Performed: Caudal Epidural Steroid Injection Pending Studies Studies pending at discharge: no Medical Emergencies . Who to Call and When: Medical Emergencies: If at any time you feel your situation is an emergency, please call 911 immediately. . Non-Emergent Contact Non-Emergency issues call your: Specialist . . "Provider Documentation" section prepared by Damián Rankin. .
[2018-02-27 13:25] VITALS: TEMP 36.6
[2018-02-27 13:50] VITALS: BP 156/67; PULSE 71; O2SAT 97
--- NOTE | 2018-02-27 13:56 | OPERATIVE REPORT ---
DATE OF OPERATION: 02/27/2018 PREOPERATIVE DIAGNOSIS: Lumbar spinal stenosis with left lower extremity radiculopathy. POSTOPERATIVE DIAGNOSIS: Lumbar spinal stenosis with left lower extremity radiculopathy. PROCEDURE: Caudal epidural steroid injection under fluoroscopic guidance. INDICATIONS: The patient is a 67-year-old white female who receives epidural injections for great relief of radicular pain, the last one was done in October. Over the last few weeks, she started to have pain coming back and is requesting another injection. PHYSICAL EXAMINATION: A pleasant female, seated comfortably. She has normal lower extremity strength. Sensation was subjectively decreased throughout the left leg in the L4-L5 dermatomes, more in this region. Negative seated straight leg raises. CONSENT: Verbal and written consent was obtained from the patient. Risks and benefits were reviewed. Risks include but are not limited to epidural abscess and allergic reaction. The patient wishes to proceed. DESCRIPTION OF PROCEDURE: The patient was taken back to the special procedures room of the [facility] where she was maintained in a prone position. The backside was cleansed with Betadine x3 and a dry sterile dressing was applied. Fluoroscope was used to identify the sacral hiatus and overlying skin was anesthetized with 4 mL of lidocaine 1% with a 25-gauge 1-1/2 inch needle. A 20-gauge 5-inch needle was then directed under lateral fluoroscopic guidance into the sacral canal and advanced without problems or difficulties. She then underwent injection after negative aspiration of 40 mg Depo-Medrol and 4 mL of preservative free sodium chloride. Injection was well-tolerated. DISPOSITION: 1. The patient is taken out into the discharge recovery area where she will be discharged home once discharge criteria are met. 2. Follow up in the [facility] office in 4 weeks' time. I attest to the content of the Intraoperative Record and any orders documented therein. Any exception s are noted below.
== END | disposition home or self-care (01) ==
LOC: X.SURG 11:50
PROVIDERS: ATTEND Physical Medicine & Rehabilitation
DX: M48.061 Spinal stenosis, lumbar region without neurogenic claudication (principal); M54.16 Radiculopathy, lumbar region; B02.9 Zoster without complications; Z79.899 Other long term (current) drug therapy